=== PATIENT | female | born 1945 | race Hispanic/Latino ===

== ENCOUNTER 2024-07-24 12:00 | Inpatient (IN) | payer OTHER ==
[~2024-07-24] VITALS: Ht 157.5 cm; Wt 78.7 kg
[2024-07-24 15:13] VITALS: BP 142/64; PULSE 55; RESP 16; TEMP 97.5
[2024-07-24] MEDS ORDERED: AZEL137S11 NS (15:22)
[2024-07-24] MEDS ORDERED: LEVO100C5 PO (15:45)
[2024-07-24] MEDS ORDERED: CHOL500051 PO (15:45)
[2024-07-24] MEDS ORDERED: ASPI-1146 PO (15:45)
[2024-07-24] MEDS ORDERED: LACT10SO76 PO (15:45)
[2024-07-24] MEDS ORDERED: ROSU20TA98 PO (15:45)
[2024-07-24] MEDS ORDERED: FURO20TA4 PO (15:45)
[2024-07-24] MEDS ORDERED: LOSA50TA64 PO (15:45)
[2024-07-24] MEDS ORDERED: CYAN-106 SQ (15:45)
[2024-07-24] MEDS ORDERED: NITR0.4T50 SL (15:45)
[2024-07-24 17:07] LABS: BASOPHILS # (AUTO) 0.05 K/uL (0.00-0.20); BASOPHILS % (AUTO) 0.7 % (0.0-5.0); EOSINOPHILS # (AUTO) 0.11 K/uL (0.00-0.70); EOSINOPHILS % (AUTO) 1.6 % (0.0-8.0); HEMATOCRIT 34.6 % (36-48); IMMATURE GRANULOCYTE ABSOLUTE 0.02 K/uL (0-1); LYMPHOCYTES # (AUTO) 2.4 K/uL (1.0-4.8); LYMPHOCYTES % (AUTO) 34.2 % (21.0-51.0); MEAN CORPUSCULAR HEMOGLOBIN 28.5 pg (27.0-33.0); MEAN CORPUSCULAR HGB CONC 31.5 g/dL (32.0-36.0); MEAN CORPUSCULAR VOLUME 90.6 fL (79-99); MONOCYTES # (AUTO) 0.9 K/uL (0.1-1.0); MONOCYTES % (AUTO) 12.2 % (3.0-13.0); NEUTROPHILS # (AUTO) 3.5 K/uL (1.8-7.7); PLATELET COUNT (AUTO) 313 K/uL (130-400); RED BLOOD CELL COUNT(AUTO) 3.82 MIL/uL (4.00-5.50)
[2024-07-24 17:28] LABS: INR 0.97 (0.85-1.15); PROTHROMBIN TIME 10.3 SEC (9.6-11.6)
[2024-07-24 17:36] LABS: ALBUMIN 3.6 g/dL (3.5-5.0); BILIRUBIN,TOTAL 0.4 mg/dL (0.2-1.0); CREATININE 0.9 mg/dL (0.5-1.0); POTASSIUM 4.7 mmol/L (3.5-5.1); TOTAL PROTEIN, SERUM 8.1 g/dL (6.0-8.3)
--- NOTE | 2024-07-25 06:40 | EKG ---
[facility] Test Date: 2024-07-24 Test Time: 15:08:26 Pat Name: GINNY RUBI Department: Patient ID: [facility] [id number] Room: 419 Gender: F [employer]ur[employer] Machine Operators: [id number] : 1945 Requested By: NITA CHAU Order Number: [id number] Reading MD: Geoffrey Escobedo Measurements Intervals [place] Rate: 49 P: 21 IN: 145 QRS: 1 QRSD: 98 T: 8 QT: 494 QTc: 444 Interpretive Statements Sinus Bradycardia with irregular rate Low voltage, precordial leads No previous ECG available for comparison Electronically Signed On 07-31-2024 07:21:18 CDT by Geoffrey Escobedo Please click the below link to view image of tracing.
[2024-07-30] VITALS (31 sets, daily range): BP systolic 109–175; BP diastolic 59–87; PULSE 40–67; RESP 13–20; TEMP 96.5–98.4; O2SAT 96–100
[2024-07-30] MEDS: LACTATED RINGERS 1000ML 1,000 ML IV ONE (07:00)
[2024-07-30] MEDS: MEROPENEM 1GM 1 GM VIAL ONE (07:00)
[2024-07-30] MEDS ORDERED: ketaMINE 50MG/ML SYRINGE 50 MG/ML DISP.SYRIN ONE (07:06)
[2024-07-30] MEDS ORDERED: LIDOCAINE PF 100MG/5ML (2%) SYRINGE 5ML ONE (07:14)
[2024-07-30] MEDS ORDERED: proPOFol 10 MG/ML 20ML VIAL IV ONE (07:14)
[2024-07-30] MEDS ORDERED: rocuRONium bROMide 10MG/1ML 5ML VL ONE ×2 (07:14→09:23)
[2024-07-30] MEDS ORDERED: FENTanyl CITRate PF 50 MCG/1 ML 2ML VIAL ONE (07:15)
[2024-07-30] MEDS ORDERED: BUPIvacaine/PF 0.5% 30ML VIAL ONE (07:58)
[2024-07-30] MEDS ORDERED: LIDOCAINE 1%-EPI 1:100,000 20 ML VIAL ONE (07:58)
[2024-07-30] MEDS ORDERED: NEOSTIGMINE METHYLSULFATE 1MG/ML IV ONE (08:10)
[2024-07-30] MEDS ORDERED: GLYCOPYRROLATE 0.2 MG/ML 5 ML VIAL ONE (08:10)
[2024-07-30] MEDS ORDERED: ePHEDrine SULFate 50 MG/ML AMPULE ONE (08:11)
[2024-07-30] MEDS ORDERED: dexaMETHasone SOD PHOSPHATE 10MG/ML 1ML VIAL ONE (08:11)
[2024-07-30] MEDS ORDERED: ondanSETRON 4MG INJ ONE (08:12)
[2024-07-30] MEDS: MEROPENEM 1GM 1 GM VIAL IVPB ONE (08:28)
[2024-07-30] MEDS ORDERED: INSULIN humuLIN R 100 UNIT/ML 3ML SQ PRN (10:30)
[2024-07-30] MEDS ORDERED: hydroMORPHone 0.5 MG SYG (0.5MG/0.5ML) IVP PRN (10:30)
[2024-07-30] MEDS ORDERED: ondanSETRON 4MG INJ IVP PRN (10:30)
[2024-07-30] MEDS: acetaMINOPHEN 325 MG TAB PO SCH (10:30)
--- NOTE | 2024-07-30 10:55 | OP ---
Operative Note: DATE OF PROCEDURE: 07/30/24 SURGEON: NITA CHAU MD AFFILIATE MARKETING MANAGER: None ANESTHESIA: General ANESTHESIOLOGIST/TAPE RECORDER MECHANIC: TAPE RECORDER MECHANIC PREOPERATIVE DIAGNOSIS: Rectocele POSTOPERATIVE DIAGNOSIS: Rectocele Pelvic Organ Prolapse Bladder Prolapse/Cystocele PROCEDURE: Robotic Suture Rectopexy ESTIMATED BLOOD LOSS: Minimal INDICATIONS: Mrs. Freed is a very pleasant 78 year old female who presented with a large symptomatic rectocele and constipation. She was offered surgical management and wished to proceed. Complications, alternatives, risk and benefits of the procedure were discussed and include but not limited to infection, bleeding, injury to surrounding structures such as blood vessels, nerves and other organs, sepsis, mesh complications include chronic pain, infection, erosion into pelvic organs, recurrence of disease as well as the need for additional procedures. The patient and family voiced complete understanding and wish to proceed. All of their questions were answered to their satisfaction. DESCRIPTION OF PROCEDURE: After informed consent was obtained the patient was taken to the operating room and laid in the supine position. Once general endotracheal anesthesia was obtained, the patient was carefully placed into the lithotomy position. Next the perineum and abdomen were prepped and draped in the usual sterile fashion. A lisa e out was performed to confirm the correct patient and procedure. A veress needle was inserted and confirmed to be intra-abdominal with a saline drop test. Pneumoperitoneum was obtained. Next 8mm trocar was inserted and the abdomen was inspected without any significant findings. We then placed the remaining trocars horizontally across the mid abdomen and an assist port in the left upper quadrant. We then retracted the redundant sigmoid out of the pelvis and isolated the sacral promontory. We then took open the peritoneum in the right pelvic gutter down to the anterior peritoneal reflection. There was noticed to be severe pelvic floor laxity. We continue the dissection anteriorly and it was noticed that the bladder was severely prolapse as far as posterior to the vaginal cuff. We located the vagina and placed a retractor into the vagina and dissected the rectovaginal septum. Once this was done it was noticed that she has severe pelvic floor laxity with prolapse of all 3 compartments and at this time it was decided to not proceed with placement of mesh as she would likely benefit from combo surgery with urology to address all compartments. Given the prolapse of the posterior compartment and rectocele we then performed a suture rectopexy. Once the rectum was mobilized posteriorly to the pelvic floor we performed a suture rectopexy to the sacral promontory using 0 ethibond sutures. We then closed the peritoneum with a running v lock suture. Hemostatic powder was placed into the dissection area. Hemostasis was confirmed. The trocars were removed and incisions closed with Monocryl sutures and Dermabond placed as a sterile dressing. The patient tolerated the procedure well and was taken to the recovery room in stable condition. I discussed the above with the daughters at completion of the case. I have discussed the case with Dr. Berta Timmons who agreed to see the patient in preparation for combo surgery in the near future. Counts were reported as correct x2 by nursing staff Specimens: None Complications: None Findings: Moderate to severe prolapse of all 3 pelvic compartments NITA CHAU MD Jul 30, 2024 10:55
[2024-07-30] MEDS: FENTanyl CITRate PF 50 MCG/1 ML 2ML VIAL ONE (10:59)
[2024-07-30] MEDS: GLYCOPYRROLATE 0.2 MG/ML 5 ML VIAL ONE (11:05)
[2024-07-30] MEDS: acetaMINOPHEN 325 MG TAB ONE (12:09)
[2024-07-30] MEDS: acetaMINOPHEN 100 ML ONE (12:09)
[2024-07-30] MEDS: FAMOTIDINE 20MG VIAL IV ONE (12:10)
[2024-07-30] MEDS: SUGAMMADEX SODIUM 200 MG/2 ML VIAL IV ONE (12:10)
[2024-07-30] MEDS: OXYcodONE HCL 5 MG TAB PO PRN (12:37)
[2024-07-30] MEDS: LACTATED RINGERS 1000ML 1,000 ML IV SCH (12:43)
--- NOTE | 2024-07-30 13:24 | HP ---
[facility] PHYS[facility] Date of Service: Jul 30, 2024 Time of Service: 13:16 HISTORY OF PRESENT ILLNESS: [78-year-old female with past medical history of hyperlipidemia, hypertension, arthritis, CAD, bradycardia frequent UTIs who is admitted for status post ventral mesh rectopexy by Dr. Dickinson today. Apparently patient was having some rectocele and constipation who went to Dr. Cramer for follow-up appointment on 05/28/2024. Patient has been seen by her branner machine tender Dr. Ness who cleared patient for surgery hence the procedure was done this morning. Patient was evaluated in room 419, she is alert oriented x3, she is accompanied by her daughters at bedside. She is still feels drowsy from anesthesia. No other complaints for now. Patient was referred to the hospitalist for medical management. We will be following postop orders from GI surgeon. ] REVIEW OF SYSTEMS CONSTITUTIONAL: Denies fevers, chills, or night sweats. No unintentional weight loss reported. NEUROLOGICAL: Denies headache, amaurosis fugax, motor weakness, sensory deficit, vertigo/spinning sensation, gait abnormalities, or tremors. ENT: No hearing loss, otalgia, otorrhea, rhinitis, rhinorrhea, hoarseness, or sore throat. CARDIOVASCULAR: Denies any exertional angina, dyspnea on exertion, orthopnea, p aroxysmal nocturnal dyspnea, palpitations, life-threatening arrhythmias, claudication. PULMONARY: Denies any shortness of breath, cough, phlegm/sputum, hemoptysis, pleuritic chest pain. SLEEP: Denies morning headaches, daytime somnolence or napping. Denies difficulty falling asleep, staying asleep, waking from sleep. Denies knowledge of snoring. GASTROINTESTINAL: Denies any type of dysphagia to either liquids or solids. Denies nausea, vomiting, pyrosis, early satiety, abdominal pain, diarrhea, constipation, or changes in stool consistency or caliber. Denies coffee-ground emesis, hematemesis, hematochezia, or melanotic stools. GENITOURINARY: Denies frequency, urgency, nocturia, hematuria or incontinence (Storage/Irritative symptoms.) Low urinary stream, straining to void, urinary intermittency or hesitancy, splitting of the voiding stream, terminal dribbling. ENDOCRINOLOGIC: Denies polyuria, polydipsia, polyphagia or heat/cold intolerances. HEMATOLOGIC: Denies thrombophilia/previous clots, or coagulopathy/bleeding disorders. ONCOLOGIC: Denies personal history of malignancy. DERMATOLOGIC: Denies rashes or pruritus. PSYCHIATRIC: Denies any suicidal or homicidal ideation. Denies hallucinations. PAST MEDICAL HISTORY: [ CAD, bradycardia, hypertension, hyperlipidemia, arthritis, UTI ] PAST SURGICAL HISTORY: [ Hernia repair, heart stent, tubal ligation, endoscopy in 2022, colonoscopy in 2022, EGD in 2023, hysterectomy in 2024 ] PAST SOCIAL HISTORY: [Patient denies tobacco, alcohol or illicit drug use. ] FAMILY HISTORY: [ Noncontributory ] Coded Allergies: No Known Drug Allergies (Unverified Allergy, Unknown, 03/28/14) PHYSICAL EXAM GENERAL APPEARANCE: The patient is awake, alert, and oriented, in no acute cardiopulmonary distress. NEUROLOGICAL: Cranial nerves II-XII grossly intact. Motor is 5/5 in bilateral upper and lower extremities proximal to distal. No sensory deficits. HEENT: Face is symmetric. Pupils are equal and reactive. Extraocular movements are intact. NECK: Supple. No JVD. No thyromegaly. No submental, submandibular, pre- /postauricular, occipital or supraclavicular lymphadenopathy. CHEST: Normal chest expansion. No Telemetry. LUNGS: Absence of any rales, rhonchi or any wheezing. CARDIOVASCULAR: Regular. S1 and S2 normal. No appreciable rubs, murmurs or gallops. ABDOMEN: Soft, nontender, and nondistended. There is no rebound, voluntary guarding, or rigidity. : Deferred. No Barrera. EXTREMITIES: Non-edematous and not cyanotic. No clubbing. Good capillary refill. SKIN: No skin breakdown. Vital Sign (Last 24 Hours) 07/30/24 07/30/24 11:40 12:40 Temp 97.5 Pulse 41 Resp 18 B/P (MAP) 142/66 Pulse Ox 96 O2 Delivery Nasal Cannula O2 Flow Rate 2.0 FiO2 24 LABS: Current Medications Medications (Trade) Dose Ordered Sig/Sheree Route PRN Reason Start Time Stop Time Status Last Admin Dose Admin Acetaminophen (TYLenol 325MG TAB) 650 mg Q6H PO 07/30/24 10:30 08/29/24 10:29 Enoxaparin Sodium (Lovenox) 40 mg DAILY SQ 07/31/24 09:00 08/30/24 08:59 Furosemide (LASix 20MG TAB) 20 mg DAILY PO 07/31/24 09:00 08/30/24 08:59 Hydromorphone HCl (DiLAUDid 0.5MG INJ) 0.5 mg Q4H PRN IVP SEVERE PAIN (7-10) 07/30/24 10:30 08/04/24 10:29 Insulin Human Regular (humuLIN R 100 UNIT/ML 3ML) AD PRN SQ SLIDING SCALE COVERAGE 07/30/24 10:30 08/29/24 10:29 Lactated Ringer's 1,000 ml @ 50 mls/hr Q20H IV 07/30/24 10:30 08/29/24 10:29 07/30/24 12:43 50 MLS/HR Losartan Potassium (CozAAR 50 mg TAB) 50 mg HS PO 07/30/24 21:00 08/29/24 20:59 Miscellaneous Medication (Rosuvastatin Calcium ) 20 mg HS PO 07/30/24 21:00 08/29/24 20:59 UNV Ondansetron HCl (zoFRAN 4MG INJ) 4 mg Q4H PRN IVP NAUSEA 07/30/24 10:30 08/29/24 10:29 Oxycodone HCl (ROXicoDONE) 5 mg Q6H PRN PO MODERATE PAIN (4-6) 07/30/24 10:30 08/06/24 10:29 07/30/24 12:37 5 MG DIAGNOSTICS / RADIOLOGY: [ ] ASSESSMENT: [Rectocele, POA Chronic constipation, POA Hypertension Hyperlipidemia CAD Arthritis Bradycardia ] PLAN: [Patient to be admitted in medical floor Patient will be followed by hospitalist for medical management Patient is currently on clear liquid diet , diet advancement per surgeon Home medication has been reviewed and reconciled We will follow surgeon postop orders GI and DVT prophylaxis Pain management We will repeat labs tomorrow Patient is a full code ADVANCED CARE PLANNING 1. Which of the following were discussed? Hospice Care - Yes / No Therapeutic options - Yes / No Advance Directives - Yes / No Other discussions - 2. Discussed with who? Patient 3. Voluntary nature of this service was explained to the patient? Yes / No 4. Amount of time spent - ____20 mins___ 5. Reviewed by Physician? (if this service was performed by NPP) Yes / No ] ATTESTATION BY PHYSICIAN I have seen and examined the patient. I reviewed the documentation, medical decision making, and treatment plan as noted by the mid-level provider above. I agree with the findings and plan of care. RANDOLPH PUTNAM MD, [facility] Jul 30, 2024 13:24
[2024-07-30 13:51] LABS: HEMATOCRIT 35.7 % (36-48); MEAN CORPUSCULAR HEMOGLOBIN 28.6 pg (27.0-33.0); MEAN CORPUSCULAR HGB CONC 31.9 g/dL (32.0-36.0); MEAN CORPUSCULAR VOLUME 89.5 fL (79-99); RED BLOOD CELL COUNT(AUTO) 3.99 MIL/uL (4.00-5.50); RED CELL DISTRIBUTION WIDTH 12.9 % (11.0-15.5); WHITE BLOOD COUNT (AUTO) 9.8 K/uL (4.8-10.8)
[2024-07-30 14:32] LABS: MAGNESIUM 2.1 mg/dL (1.80-2.40); POTASSIUM 3.7 mmol/L (3.5-5.1)
[2024-07-30] MEDS: atorVAStatin 40 MG TABLET PO SCH (20:20)
[2024-07-30] MEDS: LoSARTan 50 MG TABLET PO SCH (20:21)
[2024-07-31 04:06] VITALS: BP 122/58; PULSE 98; RESP 18; TEMP 97.8
[2024-07-31 06:12] LABS: BASOPHILS # (AUTO) 0.02 K/uL (0.00-0.20); BASOPHILS % (AUTO) 0.2 % (0.0-5.0); EOSINOPHILS # (AUTO) 0.01 K/uL (0.00-0.70); EOSINOPHILS % (AUTO) 0.1 % (0.0-8.0); HEMATOCRIT 31.8 % (36-48); IMMATURE GRANULOCYTE ABSOLUTE 0.05 K/uL (0-1); LYMPHOCYTES # (AUTO) 1.5 K/uL (1.0-4.8); LYMPHOCYTES % (AUTO) 15.8 % (21.0-51.0); MEAN CORPUSCULAR HEMOGLOBIN 28.9 pg (27.0-33.0); MEAN CORPUSCULAR HGB CONC 31.8 g/dL (32.0-36.0); MEAN CORPUSCULAR VOLUME 90.9 fL (79-99); MONOCYTES # (AUTO) 0.6 K/uL (0.1-1.0); MONOCYTES % (AUTO) 6.5 % (3.0-13.0); NEUTROPHILS # (AUTO) 7.5 K/uL (1.8-7.7); NEUTROPHILS % (AUTO) 76.9 % (40.0-77.0); PLATELET COUNT (AUTO) 296 K/uL (130-400); WHITE BLOOD COUNT (AUTO) 9.7 K/uL (4.8-10.8)
[2024-07-31 06:39] LABS: POTASSIUM 4.8 mmol/L (3.5-5.1)
[2024-07-31 08:00] VITALS: O2SAT 99
[2024-07-31 08:18] VITALS: BP 148/71; PULSE 55; RESP 20; TEMP 97.7
--- NOTE | 2024-07-31 09:23 | PN ---
COLOR[facility] PROGRESS NOTE Date of Visit: Jul 31, 2024 Time of Visit: 09:22 Events / Notes: [ ] Review of Systems: CONSTITUTIONAL: No malaise or change in sensation of wellbeing. ENMT: No rhinorrhea, otorrhea, sinus pain, ear ache. CARDIOVASCULAR: No angina, palpitations, orthopnea or paroxysmal dyspnea. RESPIRATORY: No SOB. GASTROINTESTINAL: No abdominal pain, nausea, vomiting, diarrhea, hematemesis, melena or change in the patient's habitual bowel movements consistency/number. GENITOURINARY: No dysuria, hematuria or change in bladder continence. MUSCULOSKELETAL: No new muscle pain or decrease in muscular strength. No new joint swelling, redness or tenderness. SKIN: No new rash. Physical Exam: GEN: Awake, alert, oriented in person, time and place, and in no acute distress. HEENT: No sinus tenderness. Tympanic membranes were not examined. No rhinorrhea. Oral pharyngeal mucosa is pink, moist and within normal limits. Neck is supple with no cervical lymphadenopathy, thyromegaly or JVD. CHEST: Inspection, palpation and percussion of the chest were unremarkable. Lung auscultation revealed normal breath sounds bilaterally. CARDIAC: PMI is within normal limits. Heart sounds are regular. Normal S1, S2. No gallop or murmur. ABD: Soft, non-tender and not distended. No peritoneal signs on palpation. No organomegaly. Normal bowel sounds. EXT: No cyanosis or clubbing. No edema. SKIN: Intact. No rashes. JOINTS: No evidence of synovitis or acute arthritis. NEURO: Alert and oriented to name, place and person. Cranial nerve examination is unremarkable. No focal motor deficits. Normal speech. Gait is normal. Strength is normal. Vital Signs (last 8hr) Date Time Temp Pulse Resp B/P (MAP) Pulse Ox O2 Delivery O2 Flow Rate FiO2 07/31/24 08:18 97.7 55 20 148/71 99 Room Air 07/31/24 04:06 97.9 98 18 122/58 100 Room Air 21 Laboratory: [ ] Laboratory: Test 07/31/24 05:59 07/31/24 05:10 Range/Units White Blood Count 9.7 4.8-10.8 K/uL Red Blood Count 3.50 L 4.00-5.50 MIL/uL Hemoglobin 10.1 L 12.0-16.0 g/dL Hematocrit 31.8 L 36-48 % Mean Corpuscular Volume 90.9 79-99 fL Mean Corpuscular Hemoglobin 28.9 27.0-33.0 pg Mean Corpuscular Hemoglobin Concent 31.8 L 32.0-36.0 g/dL Red Cell Distribution Width 13.0 11.0-15.5 % Platelet Count 296 130-400 K/uL Mean Platelet Volume 9.1 7.5-10.5 fL Immature Granulocyte % (Auto) 0.5 0-1 % Neutrophils (%) (Auto) 76.9 40.0-77.0 % Lymphocytes (%) (Auto) 15.8 L 21.0-51.0 % Monocytes (%) (Auto) 6.5 3.0-13.0 % Eosinophils (%) (Auto) 0.1 0.0-8.0 % Basophils (%) (Auto) 0.2 0.0-5.0 % Neutrophils # (Auto) 7.5 1.8-7.7 K/uL Lymphocytes # (Auto) 1.5 1.0-4.8 K/uL Monocytes # (Auto) 0.6 0.1-1.0 K/uL Eosinophils # (Auto) 0.01 0.00-0.70 K/uL Basophils # (Auto) 0.02 0.00-0.20 K/uL Absolute Immature Granulocyte (auto 0.05 0-1 K/uL Nucleated Red Blood Cells 0.0 0.0-0.19 % Sodium Level 139 136-145 mmol/L Potassium Level 4.8 3.5-5.1 mmol/L Chloride Level 107 101-111 mmol/L Carbon Dioxide Level 29 21-32 mmol/L Blood Urea Nitrogen 8 7-18 mg/dL Creatinine 1.0 0.5-1.0 mg/dL Glomerular Filtration Rate Calc 58 >90 mL/min Random Glucose 105 70-105 mg/dL Total Calcium 9.0 8.5-10.1 mg/dL Magnesium Level 2.00 1.80-2.40 mg/dL Whole Blood Glucose 94 70-110 MG/DL Current Medications Medications (Trade) Dose Ordered Sig/Sheree Route PRN Reason Start Time Stop Time Status Last Admin Dose Admin Acetaminophen (TYLenol 325MG TAB) 650 mg Q6H PO 07/30/24 10:30 08/29/24 10:29 07/30/24 17:20 650 MG Atorvastatin Calcium (LIPItor 40MG) 40 mg HS PO 07/30/24 21:00 08/29/24 20:59 07/30/24 20:20 40 MG Enoxaparin Sodium (Lovenox) 40 mg DAILY SQ 07/31/24 09:00 08/30/24 08:59 Furosemide (LASix 20MG TAB) 20 mg DAILY PO 07/31/24 09:00 08/30/24 08:59 Hydromorphone HCl (DiLAUDid 0.5MG INJ) 0.5 mg Q4H PRN IVP SEVERE PAIN (7-10) 07/30/24 10:30 08/04/24 10:29 Insulin Human Regular (humuLIN R 100 UNIT/ML 3ML) AD PRN SQ SLIDING SCALE COVERAGE 07/30/24 10:30 08/29/24 10:29 Lactated Ringer's 1,000 ml @ 50 mls/hr Q20H IV 07/30/24 10:30 08/29/24 10:29 07/30/24 12:43 50 MLS/HR Levothyroxine Sodium (SYNTHroid 100MCG TAB) 500 mcg QFR@0630 PO 08/02/24 06:30 09/01/24 06:29 Losartan Potassium (CozAAR 50 mg TAB) 50 mg HS PO 07/30/24 21:00 08/29/24 20:59 07/30/24 20:21 50 MG Ondansetron HCl (zoFRAN 4MG INJ) 4 mg Q4H PRN IVP NAUSEA 07/30/24 10:30 08/29/24 10:29 Oxycodone HCl (ROXicoDONE) 5 mg Q6H PRN PO MODERATE PAIN (4-6) 07/30/24 10:30 08/06/24 10:29 07/30/24 12:37 5 MG Diagnostics / Radiology: [COPY/PASTE HERE IF NO REPORTS PLEASE DELETE SECTION] Assessment: [ ] Plan: [ ] THERESE GODINEZ HEALTH PLAN ADVISOR Jul 31, 2024 09:23
[2024-07-31] MEDS: ENOXAPARIN SODIUM 40 MG/0.4 ML SYRINGE SQ SCH (09:36)
[2024-07-31] MEDS: furoSEMIDE 20 MG TABLET PO SCH (09:37)
--- NOTE | 2024-07-31 10:15 | NUR ---
DCP: Home SW met with pt and dgt Roxana Freed [phone]. Pt stated that she currently resides in [place] in a home with her 2 dgts. Pt. is able to do ADLs independendtly. Pt did not report any food or utilities insecurities. Pt. states that she sees Dr. Belen Wells and uses [facility] for RX. Pt did not report needing any DME at home. As per dgt, she will be taking pt home once she is discharged. Addendum: 07/31/24 at 1022 by ADOLFO MCINTOSH SS Amended: Links added.
--- NOTE | 2024-07-31 12:52 | NUR ---
DISCHARGE DISCHARGE ORDERS GIVEN FOR PATIENT TO BE DISCHARGED HOME. DISCHARGE INSTRUCTIONS, FOLLOW UP APPOINTMENTS AND DOCUMENTATION GIVEN TO PATIENT AND DAUGHTER AT BEDSIDE. BOTH VOICED UNDERSTANDING. IV DISCONTINUED BY FREDDY HOPE. NO S/S OF INFECTION NOTED. PATIENT TOLERATED WELL. BANDS REMOVED. PENDING TRANSPORTATION.
--- NOTE | 2024-07-31 14:14 | NUR ---
DISCHARGE PATIENT LEFT VIA WHEELCHAIR, NO S/S OF DISTRESS NOTED.
[2024-08-02] MEDS ORDERED: levoTHYROxine 100 MCG TABLET PO SCH (06:30)
== END 2024-07-31 14:49 | disposition home or self-care (01) | DRG 983 ==
LOC: DAHIP 07-30 06:14 → 4CH 07-30 11:40
PROVIDERS: ADMIT Internal Medicine; ATTEND Internal Medicine
PROC: 8E0W4CZ Robotic Assisted Procedure of Trunk Region, Percutaneous Endoscopic Approach (ICD-10-PCS; 2024-07-30)
PROC: 0DQP4ZZ Repair Rectum, Percutaneous Endoscopic Approach (ICD-10-PCS; principal; 2024-07-30 07:30)
DX: N81.6 Rectocele (principal); K59.09 Other constipation; I10 Essential (primary) hypertension; R00.1 Bradycardia, unspecified; E78.5 Hyperlipidemia, unspecified; I25.10 Atherosclerotic heart disease of native coronary artery without angina pectoris; Z95.5 Presence of coronary angioplasty implant and graft; Z87.440 Personal history of urinary (tract) infections; N81.10 Cystocele, unspecified
CPT/HCPCS: 36415; 80048; 80053; 82948; 83735; 85025; 85027; 85610; 85730; 86850; 86900; 86901; 93005; G0378; J1100; J1650; J2003; J2185; J2405; J2704; J2710; J3010; J3490; J7030; J7120; A4215; A4216; A4221; A4222; A4223; A4600; A4649; A4663; A4930; A6260; J0665